=== PATIENT | female | born 1970 | race Caucasian/White ===

== ENCOUNTER 2017-10-07 17:19 | Emergency (ER) | payer SELFPAY ==
[~2017-10-07] VITALS: Ht 162.6 cm; Wt 68.0 kg
[~2017-10-07 17:19] MED LIST: ALBU0.63; OXAP600; PRED10
[2017-10-07 17:20] VITALS: BP 125/91; PULSE 83; RESP 18; TEMP 99; O2SAT 100
[2017-10-07 18:07] LABS: AUTOMATED NEUTROPHIL # 4.8 TH/MM3 (1.8-7.7); BASOPHIL % 0.6 % (0.0-2.0); EOSINOPHIL # 0.2 TH/MM3 (0-0.4); EOSINOPHIL % 2.1 % (0.0-4.0); HEMATOCRIT 36.2 % (35.0-46.0); HEMOGLOBIN 12.5 GM/DL (11.6-15.3); MEAN CORPUSCULAR HEMOGLOBIN 32.7 PG (27.0-34.0); MEAN CORPUSCULAR HGB CONC 34.4 % (32.0-36.0); MEAN PLATELET VOLUME 6.5 FL (7.0-11.0); MONO % 7.6 % (0.0-8.0); MONOCYTE # 0.6 TH/MM3 (0-0.9); NEUT % 63.7 % (16.0-70.0); PLATELET COUNT 335 TH/MM3 (150-450); RED BLOOD COUNT 3.81 MIL/MM3 (4.00-5.30); RED CELL DISTRIBUTION WIDTH 12.7 % (11.6-17.2); WHITE BLOOD COUNT 7.5 TH/MM3 (4.0-11.0)
[2017-10-07 18:17] LABS: PROTHROMBIN TIME - PATIENT 10.1 SEC (9.8-11.6)
[2017-10-07 18:29] LABS: ALBUMIN 3.8 GM/DL (3.4-5.0); AST (GOT) 34 U/L (15-37); BICARBONATE 27.7 MEQ/L (21.0-32.0); BLOOD UREA NITROGEN 8 MG/DL (7-18); CALCIUM 9.4 MG/DL (8.5-10.1); CHLORIDE 106 MEQ/L (98-107); CREATININE 0.69 MG/DL (0.50-1.00); GLOMERULAR FILTRATION RATE 91 ML/MIN (>89); GLUCOSE,RANDOM 100 MG/DL (74-106); SODIUM (NA) 141 MEQ/L (136-145)
[2017-10-07 18:30] LABS: ALT (GPT) 40 U/L (10-53)
[2017-10-07 18:32] LABS: ALKALINE PHOSPHATASE 104 U/L (45-117); TOTAL BILIRUBIN ADULT 0.3 MG/DL (0.2-1.0); TOTAL PROTEIN 7.8 GM/DL (6.4-8.2)
--- NOTE | 2017-10-07 22:53 | PD ---
HPI Chief Complaint: Skin Problem Time Seen by Provider: 22:20 Travel History International Travel<30 days: No Contact w/Intl Traveler<30days: No Traveled to known affect area: No History of Present Illness HPI 47y female with a history of rheumatoid arthritis and fibromyalgia presents to the ED with a right breast mass that has been present for 1 months. Says over the last week, this has been more painful and enlarged. Says shes has been using Vicks vapor rub and warm compresses to try and reduce the swelling but has not been successful. Tylenol, motrin, and naproxen have only mildly reduced her pain. Says she has had subjective fevers for the last several days. Denies dimpling of the breast, denies nipple discharge, personal history of cancer. Denies family history of Breast cancer but says her maternal aunt has ovarian cancer. Pt had a tubal ligation over 20 years ago. Denies tobacco use but says she smoked for a short amount of time. Pt does not have a PCP. LMP 2 months ago. PFSH Past Medical History Asthma: Yes Diminished Hearing: No : 5 Para: 5 Tubal Ligation: Yes Social History Alcohol Use: Yes Tobacco Use: No Allergies-Medications (Allergen,Severity, Reaction): Coded Allergies: penicillin G (Unverified Allergy, Mild, 04/14/17) Reported Meds & Prescriptions Reported Meds & Active Scripts Active Reported Daypro (Oxaprozin) 600 Mg Tab Deltasone (Prednisone) 10 Mg Tab Accuneb (Albuterol Sulfate) 0.63 Mg/3 Ml Neb Review of Systems Except as stated in HPI: all other systems reviewed are Neg Physical Exam Narrative GENERAL: Well-nourished in no apparent distress SKIN: Focused skin assessment warm/dry. Right breast- pedunculus, no dimpling, obvious bulge to the superior aspect of the breast 12 o'clock position just posterior to the nipple, no nipple discharge HEAD: Atraumatic. Normocephalic. EYES: Pupils equal and round. No scleral icterus. No injection or drainage. ENT: No nasal bleeding or discharge. Mucous membranes pink and moist. NECK: Trachea midline. No JVD. CARDIOVASCULAR: Regular rate and rhythm. No murmur appreciated. RESPIRATORY: No accessory muscle use. Clear to auscultation. Breath sounds equal bilaterally. GASTROINTESTINAL: Abdomen soft, non-tender, nondistended. No CVA tenderness hepatic and splenic margins not palpable. MUSCULOSKELETAL: No obvious deformities. No clubbing. No cyanosis. No edema. NEUROLOGICAL: Awake and alert. No obvious cranial nerve deficits. Motor grossly within normal limits. Normal speech. PSYCHIATRIC: Appropriate mood and affect; insight and judgment normal. Data Data Last Documented VS Vital Signs Date Time Temp Pulse Resp B/P (MAP) Pulse Ox O2 Delivery O2 Flow Rate FiO2 10/07/17 17:20 99.0 83 18 125/91 (102) 100 Room Air Orders Orders Complete Blood Count With Diff (10/07/17 17:30) Comprehensive Metabolic Panel (10/07/17 17:30) Prothrombin Time / Inr (Pt) (10/07/17 17:30) Act Partial Throm Time (Ptt) (10/07/17 17:30) Lactic Acid Sepsis Protocol (10/07/17 17:30) Us Breast Unilateral (10/07/17 ) Ed Urine Pregnancytest Poc (10/07/17 23:10) Labs Laboratory Tests Test 10/07/17 17:50 White Blood Count 7.5 TH/MM3 Red Blood Count 3.81 MIL/MM3 Hemoglobin 12.5 GM/DL Hematocrit 36.2 % Mean Corpuscular Volume 95.0 FL Mean Corpuscular Hemoglobin 32.7 PG Mean Corpuscular Hemoglobin Concent 34.4 % Red Cell Distribution Width 12.7 % Platelet Count 335 TH/MM3 Mean Platelet Volume 6.5 FL Neutrophils (%) (Auto) 63.7 % Lymphocytes (%) (Auto) 26.0 % Monocytes (%) (Auto) 7.6 % Eosinophils (%) (Auto) 2.1 % Basophils (%) (Auto) 0.6 % Neutrophils # (Auto) 4.8 TH/MM3 Lymphocytes # (Auto) 2.0 TH/MM3 Monocytes # (Auto) 0.6 TH/MM3 Eosinophils # (Auto) 0.2 TH/MM3 Basophils # (Auto) 0.0 TH/MM3 CBC Comment DIFF FINAL Differential Comment Prothrombin Time 10.1 SEC Prothromb Time International Ratio 1.0 RATIO Activated Partial Thromboplast Time 26.4 SEC Blood Urea Nitrogen 8 MG/DL Creatinine 0.69 MG/DL Random Glucose 100 MG/DL Total Protein 7.8 GM/DL Albumin 3.8 GM/DL Calcium Level 9.4 MG/DL Alkaline Phosphatase 104 U/L Aspartate Amino Transf (AST/SGOT) 34 U/L Alanine Aminotransferase (ALT/SGPT) 40 U/L Total Bilirubin 0.3 MG/DL Sodium Level 141 MEQ/L Potassium Level 3.6 MEQ/L Chloride Level 106 MEQ/L Carbon Dioxide Level 27.7 MEQ/L Anion Gap 7 MEQ/L Estimat Glomerular Filtration Rate 91 ML/MIN Lactic Acid Level 1.8 mmol/L MDM Medical Decision Making Medical Screen Exam Complete: Yes Emergency Medical Condition: Yes Differential Diagnosis Right breast abscess, mastitis, cellulitis, ductal carcinoma Narrative Course 47y female with a history of rheumatoid arthritis and fibromyalgia presents to the ED with a right breast mass that has been present for 1 months. Says over the last week, this has been more painful and enlarged. Says shes has been using Vicks vapor rub and warm compresses to try and reduce the swelling but has not been successful. Tylenol, motrin, and naproxen have only mildly reduced her pain. Says she has had subjective fevers for the last several days. Denies dimpling of the breast, denies nipple discharge, personal history of cancer. Denies family history of Breast cancer but says her maternal aunt has ovarian cancer. Pt had a tubal ligation over 20 years ago. Denies tobacco use but says she smoked for a short amount of time. Pt does not have a PCP. LMP 2 months ago. Vital signs-temperature 99.0. Physical exam findings consistent with an indurated breast mass located just proximal to the nipple. No nipple discharge. No dimpling of the breasts. Exquisitely tender. CBC & BMP Diagram 10/07/17 17:50 Total Protein 7.8, Albumin 3.8, Calcium Level 9.4, Alkaline Phosphatase 104, Aspartate Amino Transf (AST/SGOT) 34, Alanine Aminotransferase (ALT/SGPT) 40, Total Bilirubin 0.3 Lactic 1.8 Ultrasound ordered. Please see Dr. Casanova's note for more information in final dispo regarding this patient. Condition: Stable Mansi Anderson Oct 07, 2017 22:53
--- NOTE | 2017-10-08 00:31 | RADRPT ---
EXAM DATE/TIME: 10/07/2017 23:45 [facility] COMPARISON: No previous studies available for comparison. INDICATIONS : Right breast swelling. MEDICAL HISTORY : . Asthma. SURGICAL HISTORY : Tubal ligation. ENCOUNTER: Initial ACUITY: 2 months PAIN SCORE: 6/10 LOCATION: Right breast. FINDINGS: Grayscale and Doppler ultrasound imaging of the right breast was performed in this patient with repor tex right breast swelling. Examination was performed remotely without physical examination. There is no mammographic correlation. At the 12: 00 position, 5 cm from the nipple there is a complex cystic lesion measuring approximately 4.4 x 4.1 x 3.5 cm. Fluid material and demonstrates internal echoes and there are septations present. There is no hyperemia. No solid mass is identified. Additionally, at the 7:00 position, 5 cm in the nipple the re is a lobulated somewhat tubular complex cystic lesion measuring 4.8 x 1.8 x 6.2 cm. CONCLUSION: There are 2 complex cystic lesions identified within the right breast, as above. Imaging features are nonspecific for infection versus sterile complex cystic lesions. If the patient is symptomatic from the cystic lesions, aspiration could be performed. Suggest followup outpatient diagnostic right breas t workup to confirm resolution. Juan Robertson MD on October 08, 2017 at 0:26 Board Certified Radiologist. This report was verified electronically.
--- NOTE | 2017-10-08 00:56 | PD ---
Physical Exam Date Seen by Provider: Oct 08, 2017 Time Seen by Provider: 00:55 Narrative Accepted in transfer of care GENERAL: Well developed well nourished female in no acute distress SKIN: Warm and dry. NECK: Supple, trachea midline. No JVD or lymphadenopathy. CARDIOVASCULAR: Regular rate and rhythm without murmurs, gallops, or rubs. Chest wall: right breast with large palpable mass extending from the superior to inferior aspect of the breast firm nonfixed without redness or increased warmth non-pointing no nipple discharge RESPIRATORY: Breath sounds equal bilaterally. No accessory muscle use. Data Data Last Documented VS Vital Signs Date Time Temp Pulse Resp B/P (MAP) Pulse Ox O2 Delivery O2 Flow Rate FiO2 10/08/17 01:54 10/07/17 17:20 99.0 83 18 100 Room Air Orders Orders Complete Blood Count With Diff (10/07/17 17:30) Comprehensive Metabolic Panel (10/07/17 17:30) Prothrombin Time / Inr (Pt) (10/07/17 17:30) Act Partial Throm Time (Ptt) (10/07/17 17:30) Lactic Acid Sepsis Protocol (10/07/17 17:30) Us Breast Unilateral (10/07/17 ) Ed Urine Pregnancytest Poc (10/07/17 23:10) Mandatory Outpatient Referral (10/08/17 00:53) Mandatory Outpatient Referral (10/08/17 00:56) Ed Discharge Order (10/08/17 00:58) Ketorolac Inj (Toradol Inj) (10/08/17 01:00) Labs Laboratory Tests Test 10/07/17 17:50 White Blood Count 7.5 TH/MM3 Red Blood Count 3.81 MIL/MM3 Hemoglobin 12.5 GM/DL Hematocrit 36.2 % Mean Corpuscular Volume 95.0 FL Mean Corpuscular Hemoglobin 32.7 PG Mean Corpuscular Hemoglobin Concent 34.4 % Red Cell Distribution Width 12.7 % Platelet Count 335 TH/MM3 Mean Platelet Volume 6.5 FL Neutrophils (%) (Auto) 63.7 % Lymphocytes (%) (Auto) 26.0 % Monocytes (%) (Auto) 7.6 % Eosinophils (%) (Auto) 2.1 % Basophils (%) (Auto) 0.6 % Neutrophils # (Auto) 4.8 TH/MM3 Lymphocytes # (Auto) 2.0 TH/MM3 Monocytes # (Auto) 0.6 TH/MM3 Eosinophils # (Auto) 0.2 TH/MM3 Basophils # (Auto) 0.0 TH/MM3 CBC Comment DIFF FINAL Differential Comment Prothrombin Time 10.1 SEC Prothromb Time International Ratio 1.0 RATIO Activated Partial Thromboplast Time 26.4 SEC Blood Urea Nitrogen 8 MG/DL Creatinine 0.69 MG/DL Random Glucose 100 MG/DL Total Protein 7.8 GM/DL Albumin 3.8 GM/DL Calcium Level 9.4 MG/DL Alkaline Phosphatase 104 U/L Aspartate Amino Transf (AST/SGOT) 34 U/L Alanine Aminotransferase (ALT/SGPT) 40 U/L Total Bilirubin 0.3 MG/DL Sodium Level 141 MEQ/L Potassium Level 3.6 MEQ/L Chloride Level 106 MEQ/L Carbon Dioxide Level 27.7 MEQ/L Anion Gap 7 MEQ/L Estimat Glomerular Filtration Rate 91 ML/MIN Lactic Acid Level 1.8 mmol/L [facility] Medical Record Reviewed: Yes Supervised Visit with PASTORA: Yes Interpretation(s) CBC & BMP Diagram 10/07/17 17:50 Total Protein 7.8, Albumin 3.8, Calcium Level 9.4, Alkaline Phosphatase 104, Aspartate Amino Transf (AST/SGOT) 34, Alanine Aminotransferase (ALT/SGPT) 40, Total Bilirubin 0.3 Vital Signs Date Time Temp Pulse Resp B/P (MAP) Pulse Ox O2 Delivery O2 Flow Rate FiO2 10/07/17 17:20 99.0 83 18 125/91 (102) 100 Room Air Diagnosis Primary Impression: Cyst of breast Referrals: [facility] call for appointment Patient Instructions: General Instructions Med/Other Pt SpecificInfo: Prescription(s) given Scripts Naproxen Sodium DS (Anaprox DS) 550 Mg Tab 550 MG PO Q12HR, #12 TAB 0 Refills Prov: Guerline Casanova MD 10/08/17 Clindamycin (Clindamycin) 150 Mg Cap 300 MG PO Q6H for Infection for 7 Days, #56 CAP 0 Refills Prov: Guerline Casanova MD 10/08/17 Disposition: 01 DISCHARGE HOME Condition: Stable Guerline Casanova MD Oct 08, 2017 00:56
[2017-10-08] MEDS ORDERED: NAPR5TAB5 PO (01:00)
[2017-10-08] MEDS ORDERED: CLIN150C14 PO (01:00)
[2017-10-08] MEDS ORDERED: KETOROLAC TROMETHAMINE 30 MG/ML (IVP) VIAL IV PUSH ONE (01:00)
== END 2017-10-08 01:54 | disposition home or self-care (01) ==
LOC: NEPC 17:19
DX: N60.01 Solitary cyst of right breast (principal); M79.7 Fibromyalgia; M06.9 Rheumatoid arthritis, unspecified; J45.909 Unspecified asthma, uncomplicated; Z80.41 Family history of malignant neoplasm of ovary
CPT/HCPCS: 76642; 80053; 83605; 85025; 85610; 85730; 99284